=== PATIENT | female | born 1955 | race Caucasian/White ===

== ENCOUNTER 2018-08-09 11:26 | Emergency (ER) | payer MEDICARE, OTHER ==
[~2018-08-09] VITALS: Ht 160 cm; Wt 99.8 kg
[2018-08-09 11:33] VITALS: BP 117/75
[2018-08-09] MEDS ORDERED: ZPAK PO (11:47)
[2018-08-09] MEDS ORDERED: PREDNISONE 20 M20 M1 PO (11:47)
[2018-08-09] MEDS ORDERED: PROAIR HFA8.5 GM INH (11:50)
[2018-08-09] MEDS ORDERED: PRILOSEC 20 MG20 MG PO (11:51)
[2018-08-09] MEDS ORDERED: CELEXA40 MG PO (11:51)
[2018-08-09] MEDS ORDERED: LISINOPRIL2.5 MG PO (11:51)
[2018-08-09] MEDS ORDERED: LASIX 20 MG TAB20 MG PO (11:52)
[2018-08-09] MEDS ORDERED: SYNTHROID100 MC1 PO (11:52)
[2018-08-09] MEDS ORDERED: ASPIRIN81 M2 PO (11:53)
[2018-08-09] MEDS ORDERED: PRESERVISION T1 EACH PO (11:53)
[2018-08-09] MEDS ORDERED: CENTRUM MULTIG80 MCG PO (11:53)
[2018-08-09] MEDS ORDERED: CRANBERRY450 M1 PO (11:54)
== END 2018-08-09 11:50 | disposition home or self-care (01) ==
LOC: M.ERS 11:26
DX: J40 Bronchitis, not specified as acute or chronic (principal); M25.551 Pain in right hip; M25.561 Pain in right knee; Z85.118 Personal history of other malignant neoplasm of bronchus and lung; Z90.49 Acquired absence of other specified parts of digestive tract; Z88.0 Allergy status to penicillin; Z88.2 Allergy status to sulfonamides; Z91.010 Allergy to peanuts